=== PATIENT | female | born 1955 | race Hispanic/Latino ===

== ENCOUNTER 2019-03-27 06:57 | Day surgery (SDC) | payer MEDICARE ==
[~2019-03-27 06:57] MED LIST: SODIUM CHLORIDE 0.9% 1000 ML 1,000 ML IV SCH
--- NOTE | 2019-03-27 08:37 | Anesthesia Consultation ---
Anesthesia Consult and Med Hx Date of service: 03/27/19 - Airway Anesthetic Teeth Evaluation: Dentures ROM Head & Neck: Adequate Mental/Hyoid Distance: Adequate Mallampati Class: Class III Intubation Access Assessment: Probably Good - Pre-Operative Health Status ASA Pre-Surgery Classification: ASA3 Proposed Anesthetic Plan: MAC - Pulmonary Hx Smoking: Yes (Quit 2003) Hx Respiratory Symptoms: Yes COPD: Yes (Last hospitalized in 08/2018) Home Oxygen Therapy: Yes (2L at home) Hx Sleep Apnea: Yes (CPAP at night) - Cardiovascular System Hx Hypertension: Yes - Central Nervous System Hx Psychiatric Problems: Yes - Endocrine Hx Renal Disease: Yes (History of Renal CA bilaterally) Hx Insulin Dependent Diabetes: Yes - Other Systems Hx Cancer: Yes (Renal CA; s/p Left nephrectomy ) Hx Obesity: Yes
--- NOTE | 2019-03-27 08:38 | Anesthesia Day of Surgery ---
Anesthesia Day of Surgery - Day of Surgery Patient Examined: Yes Patient H&P Reviewed: Yes Patient is NPO: Yes Beta Blockers: Yes
--- NOTE | 2019-03-27 08:48 | Discharge Summary ---
Providers - Providers Date of Admission: 03/27/2016 Date of discharge: 03/27/19 Attending physician: MARGARETH SHRESTHA MD Primary care physician: LAUNCH OPERATOR Hospitalization Reason for admission: egd Condition: Good Procedures: egd Hospital course: uneventful EGD Disposition: -01 TO HOME OR SELFCARE Core Measure Documentation - Palliative Care Palliative Care/ Comfort Measures: Not Applicable - Core Measures Any of the following diagnoses?: none Exam - Physical Exam Narrative exam: unchanged from pre-op H&P Plan Activity: no restrictions Diet: low carbohydrate Follow up with: PRIMARY MD CHRIS [Primary Care Provider] - 7 Days
--- NOTE | 2019-03-27 08:51 | Operative Report ---
Operative Report Operative Report: OPERATIVE REPORT - EGD DATE: 03/27/2016 SURGERY: Upper endoscopy with antral biopsy SURGEON: Ciro Houston M.D. SURVEILLANCE SYSTEMS ENGINEER: n/a PRE OP DX: GERD, morbid obesity, history of gastric banding POST OP DX: GERD, morbid obesity, gastritis TYPE OF ANESTHESIA: MAC. ESTIMATED BLOOD LOSS: None. COMPLICATIONS: None. SPECIMENS REMOVED: None. FINDINGS: 1. gastritis 2. small hiatal hernia 3. Otherwise, normal esophagus, stomach and first portion of duodenum. INDICATIONS:INDICATION FOR PROCEDURE: Patient is a 63-year-old female with a long history of morbid obesity. She has a history of gastric banding and removal due to severe GERD, and is being worked up for a bariatric procedure. . PROCEDURE DETAILS: After consent was reviewed, patient was taken back to the operating room where patient was placed in the left lateral decubitus position and a bite block was placed in the mouth. After a time-out was called, MAC anesthesia was initiated. I then passed the endoscope into her oropharynx, into her esophagus, visualized the entire esophagus, which was all within normal limits. Z-line was noted to be about 38cm from the incisors. I then visualized the stomach and the first portion of the duodenum and there were no abnormalities I could clearly visualize. I then retroflexed the scope in the stomach and visualized the hiatus and I could see a small hiatal hernia. There was evidence of an expected extrinsic narrowing where her gastric band used to be at the proximal stomach. A cold biopsy was taken of the antral mucosa to evaulate for h.pylori for comprehensive pre-op for bariatric surgery. I then desufflated the stomach and removed the endoscope. Patient tolerated procedure well and was transferred to recovery room in good and stable condition.
[2019-03-27] MEDS ORDERED: ALBUTEROL 2.5 MG/3 ML NEBU IH ONE (08:55)
[2019-03-27] MEDS ORDERED: KETAMINE/STERILE WATER 50 MG/ML SYRINGE ONE (10:42)
[2019-03-27] MEDS ORDERED: PROPOFOL 200 MG/20 ML VIAL IV ONE (10:42)
--- NOTE | 2019-03-27 11:38 | Post Anesthesia Evaluation ---
- Post Anesthesia Evaluation Patient Participated: Yes Airway Patent: Yes Stable Respiratory Function: Yes Nausea/Vomiting: No Temp > 96.8F: Yes Pain Manageable: Yes Adequeate Hydration: Yes Anesthesia Complications: No
[2019-03-27 12:00] VITALS: BP 131/92
== END 2019-03-27 06:58 | disposition home or self-care (01) ==
LOC: GIO 06:57
PROVIDERS: ATTEND Surgery
DX: K21.9 Gastro-esophageal reflux disease without esophagitis (principal); E66.01 Morbid (severe) obesity due to excess calories; K29.70 Gastritis, unspecified, without bleeding; K44.9 Diaphragmatic hernia without obstruction or gangrene; I10 Essential (primary) hypertension; E11.65 Type 2 diabetes mellitus with hyperglycemia; J44.9 Chronic obstructive pulmonary disease, unspecified; K31.89 Other diseases of stomach and duodenum; E78.00 Pure hypercholesterolemia, unspecified; G47.30 Sleep apnea, unspecified; F32.9 Major depressive disorder, single episode, unspecified; F41.9 Anxiety disorder, unspecified; D72.829 Elevated white blood cell count, unspecified; Z90.49 Acquired absence of other specified parts of digestive tract; Z68.42 Body mass index [BMI] 45.0-49.9, adult; Z94.0 Kidney transplant status; Z90.710 Acquired absence of both cervix and uterus; Z85.528 Personal history of other malignant neoplasm of kidney; Z91.040 Latex allergy status; Z87.891 Personal history of nicotine dependence; Z88.8 Allergy status to other drugs, medicaments and biological substances
CPT/HCPCS: 43239; 88305; 88342; J2704; J7030

== ENCOUNTER 2020-03-16 08:16 | Outpatient (CLI) | payer MEDICARE ==
--- NOTE | 2020-03-16 10:34 | Fluoroscopy Report ---
UPPER GI HISTORY: GASTRO ESOPHAGEAL REFLUX DISEASE WITHOUT ESOPHAGITIS. TECHNIQUE: Single and double contrast barium technique utilized to evaluate the esophagus, stomach, and duodenal C-loop. FINDINGS: To begin the exam, swallowing was evaluated in the lateral position under direct fluorosco py. Swallowing was normal. No mucosal irregularity, mass, mass effect, or critical stenosis. Motility in the esophagus and sto mach appeared decreased throughout this examination. A small sliding hiatal hernia was seen with occa sional episodes of reflux to the midesophagus. The gastric cavity and duodenal sweep are unremarkable otherwise. IMPRESSION: Small sliding hiatal hernia with occasional episodes of gastroesophageal reflux to the m idesophagus. Decreased motility was suspected. Correlate for mild gastroparesis. Fluoroscopic time: 1.8 minutes Number of fluoroscopic images: 20 Signer Name: Jasmeet Moran Jr, MD Signed: 03/16/2020 10:29 AM Workstation Name: [id number]
== END 2020-03-16 08:17 | disposition home or self-care (01) ==
LOC: FLUORO 08:16
PROVIDERS: ATTEND Surgery
DX: K44.9 Diaphragmatic hernia without obstruction or gangrene (principal); K21.9 Gastro-esophageal reflux disease without esophagitis
CPT/HCPCS: 74246